=== PATIENT | male | born 1985 | race Caucasian/White ===

== ENCOUNTER → 2017-07-24 | Outpatient (CLI) | payer OTHER ==
--- NOTE | 2017-07-24 20:15 | CT ---
Procedure: CT HEAD WITHOUT THEN WITH IV CONTRAST Exam Date: 07/24/2017 9:42 AM CDT Ordering Provider: Mellissa Cleary Clinical Indication: Dizziness. Comparison: None Technique: CT images of the head were obtained without and with low osmolar intravenous contrast administration. Coronal and sagittal reformats were obtained. This exam was performed according to our departmental dose-optimization program which includes automated exposure control, adjustment of the mA and/or kV according to patient size and/or use of iterative reconstruction technique. Findings: Portion of the vertex is outside the field of view. There is no acute cortical infarction, hemorrhage, midline shift, mass effect, or hydrocephalus. No intracranial pathologic enhancement. The calvaria and skull base are unremarkable. Paranasal sinuses and mastoid air cells are well aerated. Impression: 1. No acute intracranial abnormality. Electronically signed by: Fran Strauss MD 07/24/2017 8:14 PM CDT
== END | disposition home or self-care (01) ==
LOC: CT 09:03
DX: R51 Headache (principal)

== ENCOUNTER 2018-02-07 22:14 | Emergency (ER) | payer OTHER ==
--- NOTE | 2018-02-07 22:59 | ED.PDOC ---
History of Present Illness - General Chief Complaint: ENT Problem Stated Complaint: Ear Pain Time Seen by Provider: 02/07/18 22:56 Source: patient Exam Limitations: no limitations - History of Present Illness Initial Comments: Sid Carvajal 32 y/o male stated he has throbbing right earache which gradually got worse tonight.Has nasal congestion,no cough. Timing/Duration: this evening Severity: moderate EENT Location: ear (R) Prearrival Treatment: no prearrival treatment Presenting Symptoms: see hpi Worsening Factors: nothing Associated Symptoms: nasal congestion/drainage Allergies/Adverse Reactions: Allergies NO KNOWN ALLERGY Allergy (Verified 02/28/16 12:07) Home Medications: Ambulatory Orders Gabapentin 600 mg PO BID 09/27/16 Amoxicillin & Pot Clavulanate [Augmentin] 875 mg PO BID #9 tab 09/29/16 HYDROcodone 7.5MG/APAP 325MG [[place] 7.5/325] 0.5 - 2 ea PO Q4H PRN #40 tab 09/29 metroNIDAZOLE [Flagyl] 500 mg PO TID #13 tab 09/29/16 Amoxicillin [Amoxil] 1,000 mg PO BID 10 Days #40 cap 02/07/18 Review of Systems - Review of Systems Constitutional: States: no symptoms reported EENTM: States: see HPI Respiratory: States: no symptoms reported Cardiology: States: no symptoms reported Neurological: States: no symptoms reported All other Systems: Reviewed and Negative, No Change from Baseline Past Medical History (General) - Patient Medical History Hx Seizures: No Hx Stroke: No Hx Dementia: No Hx Asthma: No Hx of COPD: No Hx Cardiac Disorders: No Hx Congestive Heart Failure: No Hx Pacemaker: No Hx Hypertension: No Hx Thyroid Disease: No Hx Diabetes: No Hx Gastroesophageal Reflux: No Hx Renal Disease: No Hx Cancer: No Hx of HIV: No Hx Hepatitis C: No Hx MRSA: No Surgical History: appendectomy - Vaccination History Hx Tetanus, Diphtheria Vaccination: Yes Hx Influenza Vaccination: No Hx Pneumococcal Vaccination: No Immunizations Up to Date: - Unknown - Social History Hx Tobacco Use: Yes Hx Chewing Tobacco Use: Yes Hx Alcohol Use: Yes - Occasionally Hx Substance Use: No Hx Substance Use Treatment: No Hx Depression: No Feels Threatened In Home Enviroment: No Feels Threatened In a Relationship: No Hx Physical Abuse: No Hx Emotional Abuse: No Hx Suspected Abuse: No - Activities of Daily Living Hospice Agency (if applicable):: None - Female History Patient is a Female of Child Bearing Age (10 -59 yrs old): No Patient : No - Triage Comment ED Triage Comment: Pt states that he has ear pain that started about an hour ago after wearing ear buds for an hour. States it felt like something was crawling around in his ear. Family Medical History - Family History Mother Living Status: Still Living Hx Family Hypertension: Yes Hx Family Diabetes: Yes Physical Exam - Physical Exam General Appearance: Alert, Comfortable, No apparent distress Eye Exam: bilateral normal Ear Exam: right ear: TM red, left ear: auricle normal, canal normal, TM normal Nasal Exam: other - nasal congestion r>l Throat Exam: normal mouth inspection, pharynx normal Neck: full range of motion, supple, trachea midline Cardiovascular/Respiratory: regular rate, rhythm, no M/R/G, normal peripheral pulses, no respiratory distress Abdominal Exam: non-tender, no organomegaly Neurologic: alert Skin Exam: normal color, warm/dry Progress - Progress Progress: 02/07/18 23:09 Vital Signs - 24 hr 02/07/18 22:18 Temperature 97.0 F L Pulse Rate [ 61 Monitor] Respiratory 18 Rate Blood Pressure 146/98 [Left Arm] O2 Sat by Pulse 97 Oximetry Departure - Departure Clinical Impression: Nasal congestion Otitis media, right Qualifiers: Otitis media type: unspecified Chronicity: unspecified Qualified Code(s): H66.91 - Otitis media, unspecified, right ear Time of Disposition: 23:10 Disposition: Discharge to Home or Self Care Condition: Good Departure Forms: ED Discharge - Pt. Copy, Patient Portal Self Enrollment Instructions: DI for Ear Pain-Adult, Middle Ear Infection Referrals: Emelia Phan NP [Primary Care Provider] - 1-2 Weeks Prescriptions: Amoxicillin [Amoxil] 1,000 mg PO BID 10 Days #40 cap Home Medications: Ambulatory Orders Gabapentin 600 mg PO BID 09/27/16 Amoxicillin & Pot Clavulanate [Augmentin] 875 mg PO BID #9 tab 09/29/16 HYDROcodone 7.5MG/APAP 325MG [[place] 7.5/325] 0.5 - 2 ea PO Q4H PRN #40 tab 09/29 metroNIDAZOLE [Flagyl] 500 mg PO TID #13 tab 09/29/16 Amoxicillin [Amoxil] 1,000 mg PO BID 10 Days #40 cap 02/07/18 Additional Instructions: Continue with AFRIN nose spray-2 sprays each nose AM/PM for nasal congestion 3 days on 3 days off;May take Aleve (over the counter) 2 tablets am/pm for pain as needed;Follow up with primary Md 10 February 2018 as needed;May use nasal saline spray 4 sprays each nostril as needed for nasal congestion
[2018-02-07] MEDS ORDERED: cefTRIAXone SODIUM 1 GM VIAL IM ONE (23:10)
[2018-02-07] MEDS ORDERED: KETOROLAC TROMETHAMINE INJ 30 MG/ML VIAL IM ONE (23:10)
[2018-02-07] MEDS ORDERED: HYDROcodone 10MG/APAP 325MG 1 EA TAB PO ONE (23:10)
[2018-02-07] MEDS ORDERED: predniSONE 20 MG TAB PO ONE (23:11)
[2018-02-07] MEDS ORDERED: OXYMETAZOLINE NASAL SPRAY 15 ML BTTL BNAS PRN (23:15)
[2018-02-07] MEDS ORDERED: LIDOCAINE 1% 10 ML VIAL INJ ONE (23:16)
[2018-02-07 23:42] VITALS: BP 126/90; TEMP 97.6; O2SAT 96
== END 2018-02-07 23:38 | disposition home or self-care (01) ==
LOC: ER 22:14
DX: H66.91 Otitis media, unspecified, right ear (principal); R09.81 Nasal congestion; Z87.891 Personal history of nicotine dependence
CPT/HCPCS: J0696; J1885; J7512

== ENCOUNTER → 2018-08-12 | Outpatient (CLI) | payer OTHER | LOC: LAB.O 07:46 | PROVIDERS: ATTEND Family Medicine | DX: R53.83 Other fatigue (principal); Z83.3 Family history of diabetes mellitus ==

== ENCOUNTER 2018-11-15 17:50 | Emergency (ER) | payer OTHER ==
[2018-11-15 18:26] VITALS: TEMP 99.9
[2018-11-15] MEDS ORDERED: IPRATROPIUM/ALBUTEROL 3 ML VIAL NEB ONE (18:40)
--- NOTE | 2018-11-15 18:44 | ED.PDOC ---
History of Present Illness - General Chief Complaint: Respiratory Problem Stated Complaint: COUGH, SHORTNESS OF BREATH Time Seen by Provider: 11/15/18 18:39 Source: patient Exam Limitations: no limitations - History of Present Illness Initial Comments: patient comes in with chest congestion 1 day. Patient states he's had some cough, nasal congestion, and sputum that rather clear with chest congestion for the past day. Patient has had some body aches and perhaps some subjective fever but no chills. He became concerned today when his chest felt like it was heavy and he was worried that he might be getting pneumonia. Patient has had no past medical history and takes no medications. He has no known drug allergies. He does smoke but does not drink or take illicit drugs. Timing/Duration: 1 week Severity: mild Activities at Onset: rest Possible Cause: no prior episodes Improving Factors: nothing Worsening Factors: other - coughing Associated Symptoms: chest pain, cough, fever Respiratory Risk Factors: no cause identified Allergies/Adverse Reactions: Allergies NO KNOWN ALLERGY Allergy (Verified 02/28/16 12:07) Home Medications: Ambulatory Orders Gabapentin 600 mg PO TID 09/27/16 Albuterol Sulfate [Ventolin Hfa] 108 mcg IN Q4HR PRN #1 aer 11/15/18 Oseltamivir Capsule [Tamiflu] 75 mg PO BID 5 Days #10 capsule 11/15/18 Review of Systems - Review of Systems Constitutional: States: fever, malaise EENTM: States: nose congestion, throat pain Respiratory: States: cough Cardiology: States: chest pain Gastrointestinal/Abdominal: States: no symptoms reported. Denies: abdominal pain, diarrhea, nausea, vomiting Genitourinary: States: no symptoms reported Musculoskeletal: States: no symptoms reported Skin: States: no symptoms reported Past Medical History (General) - Patient Medical History Hx Seizures: No Hx Stroke: No Hx Dementia: No Hx Asthma: No Hx of COPD: No Hx Cardiac Disorders: No Hx Congestive Heart Failure: No Hx Pacemaker: No Hx Hypertension: No Hx Thyroid Disease: No Hx Diabetes: No Hx Gastroesophageal Reflux: No Hx Renal Disease: No Hx Cancer: No Hx of HIV: No Hx Hepatitis C: No Hx MRSA: No Surgical History: appendectomy - Vaccination History Hx Tetanus, Diphtheria Vaccination: Yes Hx Influenza Vaccination: Yes - 2017 Hx Pneumococcal Vaccination: No - Social History Hx Tobacco Use: Yes Hx Chewing Tobacco Use: Yes Hx Alcohol Use: Yes - Occasionally Hx Substance Use: No Hx Substance Use Treatment: No Hx Depression: No Hx Physical Abuse: No Hx Emotional Abuse: No Hx Suspected Abuse: No - Female History Patient : No Family Medical History - Family History Mother Living Status: Still Living Hx Family Hypertension: Yes Hx Family Diabetes: Yes Physical Exam - Physical Exam General Appearance: Alert, Comfortable, No apparent distress Eyes, Ears, Nose, Throat Exam: PERRL/EOMI, TMs normal, pharyngeal erythema Neck: non-tender, full range of motion, supple, lymphadenopathy (R), lymphadenopathy (L) Respiratory: wheezing - in all lung craven with no crackles Cardiovascular/Chest: normal peripheral pulses, regular rate, rhythm, no gallop, no JVD, no murmur Peripheral Pulses: radial,right: 2+, radial,left: 2+ Gastrointestinal/Abdominal: normal bowel sounds, non tender, soft Progress - Results/Orders Results/Orders: Laboratory Results WBC 7.4 K/mm3 (4.8-10.8) 11/15/18 18:40 RBC 5.70 M/mm3 (4.70-6.10) 11/15/18 18:40 Hgb 17.8 gm/dL (14.0-18.0) 11/15/18 18:40 Hct 52.7 % (42.0-52.0) H 11/15/18 18:40 MCV 92.3 fl (80.0-94.0) 11/15/18 18:40 MCH 31.1 pg (27.0-31.0) H 11/15/18 18:40 MCHC 33.7 g/dL (33.0-37.0) 11/15/18 18:40 RDW 13.5 % (11.5-14.5) 11/15/18 18:40 Plt Count 147 K/mm3 (130-400) 11/15/18 18:40 MPV 9.6 fl (7.40-10.4) 11/15/18 18:40 Absolute Neuts (auto) 4.10 K/uL (1.8-6.8) 11/15/18 18:40 Absolute Lymphs (auto) 1.80 K/uL (1.0-3.4) 11/15/18 18:40 Absolute Monos (auto) 1.20 K/uL (0.2-0.8) H 11/15/18 18:40 Absolute Eos (auto) 0.20 K/uL (0.0-0.4) 11/15/18 18:40 Absolute Basos (auto) 0.10 K/uL (0.0-0.1) 11/15/18 18:40 Neutrophils % 55.9 % (42.0-78.0) 11/15/18 18:40 Lymphocytes % 23.9 % (20.0-50.0) 11/15/18 18:40 Monocytes % 16.1 % (2.0-9.0) H 11/15/18 18:40 Eosinophils % 3.0 % (1.0-5.0) 11/15/18 18:40 Basophils % 1.1 % (0.0-2.0) 11/15/18 18:40 Influ A positive Chest Xray: no acute cardiopulmonary disease Departure - Departure Clinical Impression: Influenza Disposition: Discharge to Home or Self Care Condition: Good Departure Forms: ED Discharge - Pt. Copy, Patient Portal Self Enrollment Referrals: Cristobal Ortega MD [Primary Care Provider] - 1-2 Weeks Prescriptions: Albuterol Sulfate [Ventolin Hfa] 108 mcg IN Q4HR PRN #1 aer PRN Reason: Wheezing Oseltamivir Capsule [Tamiflu] 75 mg PO BID 5 Days #10 capsule Home Medications: Ambulatory Orders Gabapentin 600 mg PO TID 09/27/16 Albuterol Sulfate [Ventolin Hfa] 108 mcg IN Q4HR PRN #1 aer 11/15/18 Oseltamivir Capsule [Tamiflu] 75 mg PO BID 5 Days #10 capsule 11/15/18 Additional Instructions: return to ER for shortness of breath or chest pain not relieved with breathing treatments. stop smoking
--- NOTE | 2018-11-15 19:20 | RAD ---
EXAM: Chest,1 View CLINICAL INDICATION: Cough COMPARISON: 09/28/2016 FINDINGS: A single view of the chest was obtained. The heart size is normal. The pulmonary vascularity is unremarkable. The lungs are clear. There is no consolidation, infiltrate, pleural effusion, or pneumothorax. IMPRESSION: No evidence of active pulmonary disease. Electronically signed by: Francis Renner MD 11/15/2018 7:18 PM [employer]
[2018-11-15 19:33] VITALS: BP 124/73; O2SAT 94
== END 2018-11-15 19:34 | disposition home or self-care (01) ==
LOC: ER 17:50
DX: J11.1 Influenza due to unidentified influenza virus with other respiratory manifestations (principal); F17.200 Nicotine dependence, unspecified, uncomplicated
CPT/HCPCS: 36415; 71045; 85025; 87502; J7620

== ENCOUNTER → 2020-01-06 | Outpatient (CLI) | payer OTHER | LOC: LAB.O 08:06 | PROVIDERS: ATTEND Family Medicine | DX: R53.83 Other fatigue (principal); N52.9 Male erectile dysfunction, unspecified; E78.5 Hyperlipidemia, unspecified; Z20.2 Contact with and (suspected) exposure to infections with a predominantly sexual mode of transmission ==

== ENCOUNTER → 2020-04-18 | Outpatient (CLI) | payer OTHER | LOC: YCFC.O 16:47 | PROVIDERS: ATTEND Nurse Practitioner | DX: Z20.828 Contact with and (suspected) exposure to other viral communicable diseases (principal) ==

== ENCOUNTER 2020-10-16 13:08 | Emergency (ER) | payer OTHER ==
[2020-10-16 13:23] VITALS: TEMP 98.9
--- NOTE | 2020-10-16 13:26 | ED.PDOC ---
History of Present Illness - General Chief Complaint: General Stated Complaint: Dizzy, LH, nausea Time Seen by Provider: 10/16/20 13:19 Additional Information: Patient is a 35-year-old male who presents to the ED via EMS with chief complaint of nausea and generalized weakness. Patient indicates he was making breakfast this morning when he began to feel nauseated, lightheaded and generally weak. Patient has not vomited and he denies abdominal pain, chest pain, shortness of breath, fever, chills. Patient is a smoker and has an occasional smoker's cough but indicates his cough is no different today than usual. Patient denies history of any abdominal issues and is otherwise healthy and asymptomatic. Review of Systems - Review of Systems Constitutional: States: weakness. Denies: chills, fever EENTM: States: no symptoms reported Respiratory: States: no symptoms reported. Denies: cough, short of breath Cardiology: States: no symptoms reported. Denies: chest pain, palpitations Gastrointestinal/Abdominal: States: see HPI, nausea. Denies: abdominal pain, diarrhea, vomiting Genitourinary: States: no symptoms reported. Denies: dysuria Musculoskeletal: States: no symptoms reported. Denies: muscle pain Skin: States: no symptoms reported. Denies: rash All other Systems: Reviewed and Negative Past Medical History (General) - Patient Medical History Hx Seizures: No Hx Stroke: No Hx Dementia: No Hx Asthma: No Hx of COPD: No Hx Cardiac Disorders: No Hx Congestive Heart Failure: No Hx Pacemaker: No Hx Hypertension: No Hx Thyroid Disease: No Hx Diabetes: No Hx Gastroesophageal Reflux: No Hx Renal Disease: No Hx Cancer: No Hx of HIV: No Hx Hepatitis C: No Hx MRSA: No Surgical History: appendectomy - Vaccination History Hx Tetanus, Diphtheria Vaccination: Yes Hx Influenza Vaccination: Yes Hx Pneumococcal Vaccination: No - Social History Hx Tobacco Use: Yes Hx Chewing Tobacco Use: Yes Hx Alcohol Use: Yes Hx Substance Use: No Hx Substance Use Treatment: No Hx Depression: Yes Hx Physical Abuse: No Hx Emotional Abuse: No Hx Suspected Abuse: No - Female History Patient is a Female of Child Bearing Age (10 -59 yrs old): No Patient : No Family Medical History - Family History Mother Living Status: Still Living Hx Family Hypertension: Yes Hx Family Diabetes: Yes Physical Exam - Physical Exam General Appearance: Alert, Comfortable, No apparent distress, Well Developed, Well Nourished Eyes, Ears, Nose, Throat Exam: normal ENT inspection Neck: supple, normal inspection Respiratory: chest non-tender, lungs clear, normal breath sounds, no respiratory distress, no accessory muscle use Cardiovascular/Chest: normal peripheral pulses, regular rate, rhythm, no edema, no gallop, no JVD, no murmur Peripheral Pulses: No deficit Gastrointestinal/Abdominal: normal bowel sounds, non tender, no organomegaly, no pulsatile mass Back Exam: no CVA tenderness Extremity: normal range of motion, normal inspection, no pedal edema Neurologic: electrolytic de scaler II-XII nml as tested, no motor/sensory deficits, alert, normal mood/affect, oriented x 3 Skin Exam: normal color, warm/dry Progress - Progress Progress: 10/16/20 13:27 Differential diagnosis includes but is not limited to viral illness, Covid, electrolyte disorder, cardiac dysrhythmia. 10/16/20 13:28 EKG: Normal sinus rhythm, rate 69, normal axis, normal QRS, normal ST segment, normal T waves, negative STEMI. 10/16/20 14:44 Patient reassessed and he is feeling better at this time following IV fluids. Patient's labs are unremarkable including his electrolytes and Covid testing clinically patient with nonspecific viral illness. Patient now tells me that he has much stress in his life presently and feels that this is contributing to his symptoms. Will DC with Antivert and patient to follow-up with his PCP. Vital signs stable, patient is NAD and looks clinically well and I believe is safe for discharge with outpatient follow-up. Follow-up instructions, discharge instructions and return to ED precautions discussed with patient. Patient voices understanding and willingness to comply with instructions. All laboratory and/or radiographic results have been discussed with the patient, and all questions answered. Patient is happy with plan. Departure - Departure Clinical Impression: Viral illness, Dizziness Time of Disposition: 14:46 Disposition: Discharge to Home or Self Care Condition: Good Departure Forms: ED Discharge - Pt. Copy, Patient Portal Self Enrollment Referrals: Cristobal Ortega MD [Primary Care Provider] - 1-5 Days Prescriptions: Meclizine HCl [Meclizine 25] 50 mg PO Q8H PRN #20 tab PRN Reason: Dizziness Home Medications: Ambulatory Orders Bupropion HCl [Wellbutrin Xl] 300 mg PO DAILY 10/16/20 Meclizine HCl [Meclizine 25] 50 mg PO Q8H PRN #20 tab 10/16/20
[2020-10-16] MEDS: SODIUM CHLORIDE 0.9% 1000ML 1,000 ML IVS ONE (13:31)
[2020-10-16] MEDS: ONDANSETRON INJ 4 MG/2 ML VIAL IV ONE (13:31)
[2020-10-16 15:11] VITALS: BP 129/75; O2SAT 98
== END 2020-10-16 15:00 | disposition home or self-care (01) ==
LOC: ER 13:08
DX: B34.9 Viral infection, unspecified (principal); R42 Dizziness and giddiness; F32.9 Major depressive disorder, single episode, unspecified; Z87.891 Personal history of nicotine dependence; Z20.822 Contact with and (suspected) exposure to COVID-19